=== PATIENT | female | born 1970 | race Caucasian/White ===

== ENCOUNTER 2017-04-03 02:17 | Emergency (ER) | payer MEDICAID ==
[2017-04-03] MEDS ORDERED: Sodium Chloride 0.9% 1,000 ML IV SCH ×2 (02:30→03:45)
[2017-04-03 02:31] VITALS: BP 137/46
[2017-04-03] MEDS ORDERED: Ondansetron 4 MG/2 ML SDV IVPUSH ONE (02:46)
--- NOTE | 2017-04-03 02:52 | EDM.PDOCBH ---
ED HPI GENERAL MEDICAL PROBLEM - General Chief Complaint: Drug or Alcohol Abuse Stated Complaint: MEDICAL VIA [facility] Time Seen by Provider: 04/03/17 02:47 Source of Information: Reports: Patient, Family History Limitations: Reports: No Limitations - History of Present Illness INITIAL COMMENTS - FREE TEXT/NARRATIVE: [place] [employer] and she drank far more than sh should. She is on cymbaltia for depression. She otherwise has no health issues. She began to vomit markedly about 11 thirty and this seemed intractable so the wished to have her checked out Onset: Today Duration: Hour(s): Associated Symptoms: Reports: Nausea/Vomiting, Other (pt vomits when ever she sits up. ) - Related Data Allergies Allergy/AdvReac Type Severity Reaction Status Date / Time No Known Allergies Allergy Verified 04/03/17 02:27 Home Meds: Home Meds . [Unable to Verify Home Med List] 04/03/17 [History] Past Medical History Psychiatric History: Reports: Depression Social & Family History - Tobacco Use Tobacco Use Comment: current every day smoker - Caffeine Use Caffeine Use: Reports: Coffee - Recreational Drug Use Recreational Drug Use: No ED ROS GENERAL - Review of Systems Review Of Systems: See Below Constitutional: Reports: No Symptoms HEENT: Reports: No Symptoms Respiratory: Reports: No Symptoms Cardiovascular: Reports: No Symptoms Endocrine: Reports: No Symptoms GI/Abdominal: Reports: Nausea, Vomiting, Other (pt is quite intoxicated. ) : Reports: No Symptoms Musculoskeletal: Reports: No Symptoms ED EXAM, BEHAVIORAL HEALTH - Physical Exam Exam: See Below Text/Narrative:: pt arrived with a history of heavy drinking all evening and then she began to vomit markedly. Exam Limited By: No Limitations General Appearance: Alert, Anxious, Mild Distress Ears: Normal TMs Nose: Normal Inspection Throat/Mouth: Normal Inspection Head: Atraumatic Neck: Normal Inspection Respiratory/Chest: No Respiratory Distress Cardiovascular: Regular Rate, Rhythm GI/Abdominal: Soft, Non-Tender, Other (pt is vomiting markedly) (Female) Exam: Deferred Rectal (Female) Exam: Deferred Back Exam: Normal Inspection Extremities: Normal Inspection Neurological: Alert, Normal Cognition, Other (pt is very intoxicated. ) Psychiatric: Alert, Other ( intoxicated. ) COURSE, BEHAVIORAL HEALTH COMP - Course Vital Signs: Last Vital Signs Temp 36.5 C 04/03/17 02:23 Pulse 88 04/03/17 02:23 Resp 20 04/03/17 02:23 BP 137/46 L 04/03/17 02:23 Pulse Ox 98 04/03/17 02:23 Orders, Labs, Meds: Active Orders 24 hr Category Date Time Status DRUG SCREEN, URINE [URCHEM] Stat Lab 04/03/17 03:56 Ordered UA W/MICROSCOPIC [URIN] Urgent Lab 04/03/17 03:56 Ordered Sodium Chloride 0.9% [Normal Saline] 1,000 ml Med 04/03/17 02:30 Active IV ASDIRECTED Sodium Chloride 0.9% [Normal Saline] 1,000 ml Med 04/03/17 03:45 Active IV ASDIRECTED Medication Orders Sodium Chloride (Normal Saline) 1,000 mls @ 999 mls/hr IV ASDIRECTED GWEN Last Admin: 04/03/17 02:43 Dose: 999 mls/hr Sodium Chloride (Normal Saline) 1,000 mls @ 999 mls/hr IV ASDIRECTED GWEN Laboratory Tests 04/03/17 04/03/17 04/03/17 Range/Units 02:40 02:40 02:40 WBC 9.9 (4.5-11.0) K/uL RBC 4.42 (3.30-5.50) M/uL Hgb 13.4 (12.0-15.0) g/dL Hct 39.2 (36.0-48.0) % MCV 89 (80-98) fL MCH 30 (27-31) pg MCHC 34 (32-36) % Plt Count 232 (150-400) K/uL Neut % (Auto) 85 H (36-66) % Lymph % (Auto) 10 L (24-44) % [place] % (Auto) 4 (2-6) % Eos % (Auto) 1 L (2-4) % Baso % (Auto) 1 (0-1) % Sodium 142 (140-148) mmol/L Potassium 3.6 (3.6-5.2) mmol/L Chloride 109 H (100-108) mmol/L Carbon Dioxide 25 (21-32) mmol/L Anion Gap 11.6 (5.0-14.0) mmol/L BUN 12 (7-18) mg/dL Creatinine 0.7 (0.6-1.0) mg/dL Est Cr Clr Drug Dosing 74.74 mL/min Estimated GFR (MDRD) > 60 (>60) Glucose 119 H (74-106) mg/dL Calcium 8.0 L (8.5-10.1) mg/dL Total Bilirubin 0.2 (0.2-1.0) mg/dL AST 20 (15-37) U/L ALT 23 (12-78) U/L Alkaline Phosphatase 56 (46-116) U/L Total Protein 7.0 (6.4-8.2) g/dL Albumin 3.8 (3.4-5.0) g/dL Globulin 3.2 (2.3-3.5) g/dL Albumin/Globulin Ratio 1.2 (1.2-2.2) Ethyl Alcohol 143 mg/dL Medications Generic Name Dose Route Start Last Admin Trade Name Freq PRN Reason Stop Dose Admin Sodium Chloride 1,000 mls @ 999 mls/hr 04/03/17 02:30 04/03/17 02:43 Normal Saline IV 999 mls/hr ASDIRECTED GWEN Administration Sodium Chloride 1,000 mls @ 999 mls/hr 04/03/17 03:45 Normal Saline IV ASDIRECTED GWEN Discontinued Medications Generic Name Dose Route Start Last Admin Trade Name Freq PRN Reason Stop Dose Admin Ondansetron HCl 4 mg 04/03/17 02:46 04/03/17 02:59 Zofran IVPUSH 04/03/17 02:47 4 mg ONETIME ONE Administration Medical Clearance: 04/03/17 02:54 iv fluids were started. Pt was given another dose of zoforan. Departure - Departure Time of Disposition: 04:11 Disposition: Home, Self-Care 01 Condition: Fair Clinical Impression: Intoxication, Dehydration - Discharge Information Referrals: PCP,None [Primary Care Provider] - Forms: ED Department Discharge Care Plan Goals: sips of clear liquids, rtc if problems. - My Orders Last 24 Hours: My Active Orders 04/03/17 02:30 Sodium Chloride 0.9% [Normal Saline] 1,000 ml IV ASDIRECTED 04/03/17 03:45 Sodium Chloride 0.9% [Normal Saline] 1,000 ml IV ASDIRECTED 04/03/17 03:56 DRUG SCREEN, URINE [URCHEM] Stat UA W/MICROSCOPIC [URIN] Urgent - Assessment/Plan Last 24 Hours: My Active Orders 04/03/17 02:30 Sodium Chloride 0.9% [Normal Saline] 1,000 ml IV ASDIRECTED 04/03/17 03:45 Sodium Chloride 0.9% [Normal Saline] 1,000 ml IV ASDIRECTED 04/03/17 03:56 DRUG SCREEN, URINE [URCHEM] Stat UA W/MICROSCOPIC [URIN] Urgent
== END 2017-04-03 04:54 | disposition home or self-care (01) ==
LOC: JP.ED 02:17
DX: F10.120 Alcohol abuse with intoxication, uncomplicated (principal); E86.0 Dehydration; F17.200 Nicotine dependence, unspecified, uncomplicated
CPT/HCPCS: 36415; 80053; 80305; 81001; 85025; 96361; 96374; 99284; G0480; J2405; J7040